=== PATIENT | female | born 1965 | race Caucasian/White ===

== ENCOUNTER → 2019-10-07 | Outpatient (CLI) | payer BC ==
[~2019-10-07] MED LIST: AMLODIPINE BESY10 MG PO; APAP650 PO; AUGMENTIN 875-1 EACH PO; CARDIZEM CD120 MG PO; COZAAR 25 MG TA25 M1 PO; COZAAR 50 MG TA50 M1 PO; HUMALOG100 UNIT/1 SUBQ; NEURONTIN 300300 M1 PO; NORVASC10 MG PO; RENAPLEX TABLE1 EACH PO; RENVELA800 MG PO; TRESIBA FL100 UNIT/1 SUBQ; TYLENOL325 MG PO
[2019-10-07 07:23] LABS: HEMATOCRIT 34.9 % (37.0-47.0); HEMOGLOBIN 11.1 gm/dL (12.0-15.0); MCH 27.3 pg (26.0-34.0); MCHC 31.8 g/dL (28.0-37.0); MCV 85.6 fL (80.0-100.0); MPV 6.9 fl. (7.2-11.1); RBC 4.08 mil/uL (4.20-5.00); RDW-CV 15.1 % (10.5-14.5); WBC 9.2 thou/uL (4.0-11.0)
[2019-10-07 07:44] LABS: CALCIUM 7.9 mg/dL (8.5-10.1); CREATININE 9.4 mg/dL (0.6-1.3); POTASSIUM 5.6 mmol/L (3.5-5.1)
--- NOTE | 2019-10-07 16:49 | EKG ---
[place] [address] ELECTROCARDIOGRAM REPORT Name: INGRID MCCURDY Room: [facility]#: [id number] Admission: 10/07/19 Attend Phys: Erasmo Burkett MD Discharge: Date of : 61 Date of Service: 10/07/1937 Report #: [id number] THIS REPORT FOR: //name// [facility] Test Date: 2019-10-07 Test Time: 07:35:47 Pat Name: INGRID MCCURDY Department: Room: Gender: Saw Straightener: : 1965 Requested By: Erasmo Burkett Order Number: [id number] Reading MD: Sin Moya Measurements Intervals [place] Rate: 79 P: -2 MD: 167 QRS: 29 QRSD: 101 T: 69 QT: 408 QTc: 468 Interpretive Statements Sinus rhythm No previous ECG available for comparison Electronically Signed On 10-07-2019 16:47:58 CDT by Sin Moya [email or web address] <ELECTRONICALLY SIGNED> By: Sin Moya MD, [facility] 10/07/19 1647 0735 0735 Sin Moya MD, FACC /EPI
== END | disposition home or self-care (01) ==
LOC: M.LAB 06:15 → M.SUR 06:15 → EDSTATUS 14:30
PROVIDERS: Surgery Vascular Surgery
DX: I12.0 Hypertensive chronic kidney disease with stage 5 chronic kidney disease or end stage renal disease (principal); Z53.8 Procedure and treatment not carried out for other reasons; E11.22 Type 2 diabetes mellitus with diabetic chronic kidney disease; N18.6 End stage renal disease; Z98.890 Other specified postprocedural states; Z79.899 Other long term (current) drug therapy; Z87.891 Personal history of nicotine dependence